=== PATIENT | male | born 1950 | race Caucasian/White ===

== ENCOUNTER 2017-03-14 14:38 | Emergency (ER) | payer MEDICARE ==
[2017-03-14 16:22] LABS: BASOPHIL 0.4 % (0-2); EOSINOPHIL 3.2 % (0-7); HCT 45.6 % (42.0-52.0); HGB 16.4 g/dl (13.2-18.0); LYMPHOCYTE 35.1 % (15-48); MCH 31.4 pg (25.0-31.0); MCV 87.4 fL (78.0-100.0); MONOCYTE 9.4 % (0-12); MPV 9.7 fL (6.0-9.5); NEUTROPHIL 51.9 % (41-80); PLT 233 K/uL (150-400); RBC 5.22 M/uL (4.70-6.00); RDW 12.4 % (11.5-14.0); WBC 13.8 K/uL (4.0-10.5)
[2017-03-14 16:41] LABS: ALBUMIN 4.6 g/dL (3.4-4.8); BILIRUBIN - TOTAL 0.7 mg/dL (0.1-1.0); CREATININE 1.5 mg/dL (0.7-1.2); GLOBULIN (CALCULATION) 3.3 g/dL (2.2-4.2); POTASSIUM 3.7 mmol/L (3.5-5.1); TOTAL PROTEIN 7.9 g/dL (6.4-8.3)
== END 2017-03-14 17:19 | disposition home or self-care (01) ==
LOC: FER 14:38
PROVIDERS: Nurse Practitioner
DX: S16.1XXA Strain of muscle, fascia and tendon at neck level, initial encounter (principal); S39.012A Strain of muscle, fascia and tendon of lower back, initial encounter; M54.6 Pain in thoracic spine; R07.9 Chest pain, unspecified; I51.9 Heart disease, unspecified; Z79.899 Other long term (current) drug therapy; W11.XXXA Fall on and from ladder, initial encounter; Y92.009 Unspecified place in unspecified non-institutional (private) residence as the place of occurrence of the external cause
CPT/HCPCS: 36415; 70450; 71010; 72125; 72128; 72131; 80053; 84484; 85025; 93005; J2270; J2405

== ENCOUNTER 2022-02-07 13:03 | Emergency (ER) | payer MEDICARE, OTHER ==
[2022-02-07 13:36] LABS: BASOPHIL 0.6 % (0-2); EOSINOPHIL 1.2 % (0-7); HCT 37.7 % (42.0-52.0); HGB 11.9 g/dl (13.2-18.0); LYMPHOCYTE 66.4 % (15-48); MCH 30.4 pg (25.0-31.0); MCHC 31.6 g/dL (32.0-36.0); MCV 96.4 fL (78.0-100.0); MONOCYTE 4.2 % (0-12); MPV 10.5 fL (6.0-9.5); NEUTROPHIL 22.8 % (41-80); NRBC 0.6; PLT 145 K/uL (150-400); RBC 3.91 M/uL (4.70-6.00); RDW 12.5 % (11.5-14.0)
[2022-02-07 13:56] LABS: INR 1.55 (0.9-1.2); PROTHROMBIN TIME 17.8 SECONDS (11.8-13.4)
[2022-02-07 13:57] LABS: PTT 54.1 SECONDS (24.4-34.7)
[2022-02-07 14:04] LABS: BILIRUBIN NEGATIVE (NEGATIVE); BLOOD NEGATIVE Ery/uL (NEGATIVE); CLARITY CLEAR (CLEAR); COLOR YELLOW (YELLOW); GLUCOSE (U) NORMAL (NORMAL); LEUKOCYTES NEGATIVE Leu/uL (NEGATIVE); NITRITE NEGATIVE (NEGATIVE); PROTEIN NEGATIVE (NEGATIVE); UROBILINOGEN 0.2 mg/dL (0.2-1.0); pH 6.5 (5.0-9.0)
[2022-02-07 14:10] LABS: AMPHETAMINES NEGATIVE (NEGATIVE); BARBITURATES NEGATIVE (NEGATIVE); ECSTASY (MDMA) NEGATIVE (NEGATIVE); MARIJUANA (THC) NEGATIVE (NEGATIVE); METHADONE NEGATIVE (NEGATIVE); OPIATES NEGATIVE (NEGATIVE); OXYCODONE NEGATIVE (NEGATIVE)
[2022-02-07 14:11] LABS: D-DIMER 5.47 ug/mLFEU (0.00-0.41)
[2022-02-07 14:13] LABS: ALBUMIN 2.2 g/dL (3.4-5.0); BILIRUBIN - TOTAL 0.3 mg/dL (0.2-1.0); BUN/CREAT RATIO (CALC) 12.3 RATIO; CREATININE 1.55 mg/dL (0.67-1.17); GLOBULIN (CALCULATION) 2.6 g/dL; POTASSIUM 2.8 mmol/L (3.5-5.1); TOTAL PROTEIN 4.8 g/dL (6.4-8.2)
== END 2022-02-07 15:30 | disposition expired ==
LOC: FER 13:03
PROVIDERS: Emergency Medicine
DX: I46.9 Cardiac arrest, cause unspecified (principal); I47.2 Ventricular tachycardia
CPT/HCPCS: 36415; 36600; 71045; 80053; 80305; 81003; 82550; 82553; 82803; 83605; 84145; 84484; 85025; 85379; 85610; 85730; 87040; 87088; 92950; 93005; J0171; J0282; J0461; J1265; J1644; J2250; J3480; J7030; J7060